=== PATIENT | male | born 1960 | race American Indian/Alaskan Native ===

== ENCOUNTER 2016-12-18 18:56 | Emergency (ER) | payer MEDICARE ==
[2016-12-18 20:52] LABS: Basophils % (Auto) 0.6 % (0.0-1.8); Eosinophils % (Auto) 2.8 % (0.0-4.3); Hematocrit 45.8 % (35.5-45.6); Hemoglobin 15.5 gm/dl (11.8-15.2); Mean Corpuscular HGB Conc 34 % (32-34); Mean Corpuscular Hemoglobin 31 pg (28-32); Mean Corpuscular Volume 92 fl (84-94); Platelet Count 256 K/mm3 (140-440); Red Blood Count 4.99 M/mm3 (3.65-5.03); Red Cell Distribution Width 14.1 % (13.2-15.2); White Blood Count 12.6 K/mm3 (4.5-11.0)
[2016-12-18 20:57] LABS: Anion Gap 18 mmol/L; BUN/Creatinine Ratio 16.36; Blood Urea Nitrogen 18 mg/dL (9-20); Calcium 9.5 mg/dL (8.4-10.2); Carbon Dioxide 25 mmol/L (22-30); Chloride 104.7 mmol/L (98-107); Glucose 252 mg/dL (75-100); Potassium 4.4 mmol/L (3.6-5.0); Sodium 143 mmol/L (137-145)
--- NOTE | 2016-12-18 22:35 | Emergency Department Report ---
HPI - General Chief Complaint: Skin Rash - HPI HPI: 56-year-old -[place] male with a known past medical history of diabetes which is on metformin 1000 mg twice a day and NovoLog sliding scale for any blood sugars are over 210. Patient reports that he has a rash that's been going on for the last 7 days. He reports that the rash is located between his gluteal fold of his back as well as under his testicles. He reports that it itches very much. She reports that he has tried [id number] ointment which has been non-therapeutic. He denies any open sores. ED Past Medical Hx - Past Medical History Previous Medical History?: Yes Hx Diabetes: Yes Hx Psychiatric Treatment: Yes (depression) - Surgical History Past Surgical History?: Yes Additional Surgical History: neck surgery 2007. left carpal tunnel surgery - Social History Smoking Status: Current Every Day Smoker Substance Use Type: None - Medications Home Medications: Home Medications Medication Instructions Recorded Confirmed Last Taken Type Acetaminophen/Codeine [Tylenol #3] 1 tab PO Q6H PRN #15 tab 04/03/15 Unknown Rx Amoxicillin 500 mg PO BID #20 tablet 04/03/15 Unknown Rx Ibuprofen [Motrin 800 MG tab] 800 mg PO Q8HR PRN #30 tablet 04/03/15 Unknown Rx Acetaminophen/Codeine [Tylenol #3] 1 tab PO Q6H PRN #20 tab 11/03/15 Unknown Rx Ibuprofen [Motrin 800 MG tab] 800 mg PO Q8HR PRN #30 tablet 11/03/15 Unknown Rx Penicillin Vk [Veetids TAB] 500 mg PO QID #40 tablet 11/03/15 Unknown Rx Fluticasone [Flonase] 1 spray NS QDAY #1 bottle 01/15/16 Unknown Rx methylPREDNISolone [Medrol] 4 mg PO QAM #1 tab.ds.pk 01/15/16 Unknown Rx ALBUTEROL Inhaler [ProAir HFA 2 puff IH QID PRN #1 inhalation 08/19/16 Unknown Rx Inhaler] Azithromycin [Zithromax Z-LANCE] 250 mg PO QDAY #6 tablet 08/19/16 Unknown Rx traMADol [Ultram 50 MG tab] 50 mg PO Q6HR PRN #10 tablet 08/19/16 Unknown Rx Nystatin Oint [Mycostatin Oint] 1 applicatio TP BID #30 tube 12/18/16 Unknown Rx ED Review of Systems ROS: Stated complaint: DIABETIC/RASH ON LEGS BUTTOCK/ABD PAIN /BACK PAIN Other details as noted in HPI Constitutional: denies: chills, fever Eyes: denies: eye pain, eye discharge, vision change ENT: denies: ear pain, throat pain Respiratory: denies: cough, shortness of breath, wheezing Cardiovascular: denies: chest pain, palpitations Endocrine: no symptoms reported Gastrointestinal: denies: abdominal pain, nausea, diarrhea Skin: rash Physical Exam - Physical Exam Vital Signs: Vital Signs 12/18/16 19:20 Temperature 98.1 F Pulse Rate 78 Respiratory 18 Rate Blood Pressure 157/102 O2 Sat by Pulse 98 Oximetry General: GENERAL: Alert and oriented x3, no apparent distress, Normal Gait, atraumatic. HEAD: Head is normocephalic and a-traumatic. EYES: Extra ocular muscles are intact. Pupils are equal, round, and reactive to light and accommodation. UROGENITAL: No scrotal mass, Scrotum non tender to palpation bilaterally, no hernia, no scars or penile discharge. NEUROLOGIC: No focal Deficit, Cranial nerves II through XII are grossly intact. No loss of sensation, No facial droop, Negative rhomberg. PSYCHIATRIC: Mood is congruent with affect, denies suicidal or homicidal ideations. SKIN: Warm and dry, dry hypopigmented circular rash with no erythematous base located under the testicles and in the gluteal folds ED Course Vital Signs 12/18/16 19:20 Temperature 98.1 F Pulse Rate 78 Respiratory 18 Rate Blood Pressure 157/102 O2 Sat by Pulse 98 Oximetry ED Medical Decision Making - Lab Data Result diagrams: 12/18/16 20:28 12/18/16 20:28 - Medical Decision Making Patient's been evaluated by this provider in fast track. Discussed with patient this appears to be a tinea possible secondary to his diabetes been uncontrolled. Discussed with patient I we'll place him on nystatin ointment for him to use it at least twice a day. Also discussed with patient that his blood pressures a little elevated and that is serum creatinine is 1.1 which is a borderline of starting to be elevated. Discussed with patient that he needs to speak with his primary care provider about placing him on an RENE inhibitor or an ARb. The patient verbalizes understanding Critical care attestation.: If time is entered above; I have spent that time in minutes in the direct care of this critically ill patient, excluding procedure time. ED Disposition Clinical Impression: Yeast infection of the skin, Diabetes 1.5, managed as type 2 Disposition: DISCHARGED TO HOME OR SELFCARE Is pt being admited?: No Does the pt Need Aspirin: No Condition: Stable Instructions: Jock Itch (ED), Diabetes Mellitus Type 2 in Adults (ED) Additional Instructions: Very important for you to use the ointment as prescribed. Discussed with her primary care doctor about possible placement of a blood pressure medicine of an RENE inhibitor or an arb. Prescriptions: Nystatin Oint [Mycostatin Oint] 1 applicatio TP BID #30 tube Referrals: FARHAD KELLER MD [Primary Care Provider] - 3-5 Days Forms: Work/School Release Form(ED)
[2016-12-18 22:37] VITALS: BP 154/91
== END 2016-12-19 01:07 | disposition home or self-care (01) ==
LOC: ED 18:56
DX: R21 Rash and other nonspecific skin eruption (principal); E11.9 Type 2 diabetes mellitus without complications; F32.9 Major depressive disorder, single episode, unspecified; F17.200 Nicotine dependence, unspecified, uncomplicated; Z79.84 Long term (current) use of oral hypoglycemic drugs
CPT/HCPCS: 36415; 80048; 85025; 99283

== ENCOUNTER 2017-05-10 08:02 | Emergency (ER) | payer MEDICARE ==
[2017-05-10 08:25] VITALS: BP 149/90
[2017-05-10] MEDS ORDERED: FUL-GLO OP ONE (10:01)
--- NOTE | 2017-05-10 11:08 | Emergency Department Report ---
Entered by JULIEN MEDINA, acting as scribe for YESICA HYATT PA. ED Eye Problem HPI - General Chief complaint: Eye Problems Stated complaint: ELEV BLOOD PRESSURE Time Seen by Provider: 05/10/17 09:44 Source: patient Mode of arrival: Ambulatory Limitations: No Limitations - History of Present Illness Initial comments: 56 year old male with past medical history of diabetes controlled with metformin and insulin presents to with bilateral eye irritation since, but left eye is worse since yesterday. 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 He states this morning when he woke up, everything was dark on his left eye because he couldnt open his left eye due to pain and describes pain as burning. Patient reports watery eyes and blurry vision but denies, fever, chills, headache, dizziness, nausea, vomiting, chest pain, numbness, or tingling. Patient denies wearing glasses. Patient has PMHx of DM and HTN and is non complaint with HTN meds. NKDA. 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 denies: headache, neck pain, nausea/vomiting, cough , rhinorrhea, fever, shortness of breath Treatments Prior to Arrival: none - Related Data Previous Rx's Medication Instructions Recorded Last Taken Type Amoxicillin 500 mg PO BID #20 tablet 04/03/15 Unknown Rx Ibuprofen [Motrin 800 MG tab] 800 mg PO Q8HR PRN #30 tablet 04/03/15 Unknown Rx Acetaminophen/Codeine [Tylenol #3] 1 tab PO Q6H PRN #20 tab 11/03/15 Unknown Rx Ibuprofen [Motrin 800 MG tab] 800 mg PO Q8HR PRN #30 tablet 11/03/15 Unknown Rx Penicillin Vk [Veetids TAB] 500 mg PO QID #40 tablet 11/03/15 Unknown Rx Fluticasone [Flonase] 1 spray NS QDAY #1 bottle 01/15/16 Unknown Rx methylPREDNISolone [Medrol] 4 mg PO QAM #1 tab.ds.pk 01/15/16 Unknown Rx ALBUTEROL Inhaler [ProAir HFA 2 puff IH QID PRN #1 inhalation 08/19/16 Unknown Rx Inhaler] Azithromycin [Zithromax Z-LANCE] 250 mg PO QDAY #6 tablet 08/19/16 Unknown Rx traMADol [Ultram 50 MG tab] 50 mg PO Q6HR PRN #10 tablet 08/19/16 Unknown Rx Nystatin Oint [Mycostatin Oint] 1 applicatio TP BID #30 tube 12/18/16 Unknown Rx Acetaminophen/Codeine [Tylenol 1 tab PO Q6H PRN #8 tab 05/10/17 Unknown Rx /Codeine # 3 tab] Ketorolac Tromethamin 0.4%(Nf) 1 drop OP BID #5 ml 05/10/17 Unknown Rx [Acular Ls 0.4% Ophth Jenna] Ofloxacin [Ocuflox 0.3%] 1 - 2 drop OP QID #5 ml 05/10/17 Unknown Rx Allergies Allergy/AdvReac Type Severity Reaction Status Date / Time No Known Allergies Allergy Verified 05/10/17 08:28 ED Review of Systems Comment: All other systems reviewed and negative Constitutional: weakness. denies: chills, fever Eyes: eye pain, other (watery eyes) ENT: denies: ear pain, throat pain Respiratory: denies: cough, shortness of breath, wheezing Cardiovascular: denies: chest pain, palpitations Gastrointestinal: denies: abdominal pain, nausea, vomiting, diarrhea Musculoskeletal: denies: back pain, joint swelling, arthralgia Skin: denies: rash, lesions Neurological: denies: headache, weakness, paresthesias ED Past Medical Hx - Past Medical History Hx Hypertension: Yes Hx Diabetes: Yes Hx Psychiatric Treatment: Yes (depression) - Surgical History Additional Surgical History: neck surgery 2007. left carpal tunnel surgery - Social History Smoking Status: Current Every Day Smoker Substance Use Type: Alcohol - Medications Home Medications: Home Medications Medication Instructions Recorded Confirmed Last Taken Type Amoxicillin 500 mg PO BID #20 tablet 04/03/15 Unknown Rx Ibuprofen [Motrin 800 MG tab] 800 mg PO Q8HR PRN #30 tablet 04/03/15 Unknown Rx Acetaminophen/Codeine [Tylenol #3] 1 tab PO Q6H PRN #20 tab 11/03/15 Unknown Rx Ibuprofen [Motrin 800 MG tab] 800 mg PO Q8HR PRN #30 tablet 11/03/15 Unknown Rx Penicillin Vk [Veetids TAB] 500 mg PO QID #40 tablet 11/03/15 Unknown Rx Fluticasone [Flonase] 1 spray NS QDAY #1 bottle 01/15/16 Unknown Rx methylPREDNISolone [Medrol] 4 mg PO QAM #1 tab.ds.pk 01/15/16 Unknown Rx ALBUTEROL Inhaler [ProAir HFA 2 puff IH QID PRN #1 inhalation 08/19/16 Unknown Rx Inhaler] Azithromycin [Zithromax Z-LANCE] 250 mg PO QDAY #6 tablet 08/19/16 Unknown Rx traMADol [Ultram 50 MG tab] 50 mg PO Q6HR PRN #10 tablet 08/19/16 Unknown Rx Nystatin Oint [Mycostatin Oint] 1 applicatio TP BID #30 tube 12/18/16 Unknown Rx Acetaminophen/Codeine [Tylenol 1 tab PO Q6H PRN #8 tab 05/10/17 Unknown Rx /Codeine # 3 tab] Ketorolac Tromethamin 0.4%(Nf) 1 drop OP BID #5 ml 05/10/17 Unknown Rx [Acular Ls 0.4% Ophth Jenna] Ofloxacin [Ocuflox 0.3%] 1 - 2 drop OP QID #5 ml 05/10/17 Unknown Rx ED Physical Exam - General Limitations: No Limitations - Other Other exam information: GENERAL: Patient is alert and oriented x 3. No apparent distress, normal gait, atraumatic. HEAD: Head is normocephalic and atraumatic. EYES: Per orbital swelling to left eye mildly tender to palpation. Mild conjunctival injection of the left eye. Vision is intact, PERRLA EARS: Symmetrical, atraumatic, non tender. NOSE: Nose symmetrical, nontender. Nares appeared normal. MOUTH:Mouth is well hydrated and without lesions. NECK: Supple. Non edematous, No lymphadenopathy or thyromegaly. LUNGS: Symmetrical with respiration. No wheezing, rales or crackles, CTAB. HEART: Regular rate and rhythm with normal S1/S2 present. No murmurs, rubs, or gallops. SKIN: Warm and dry. No lesions, ulceration or induration present NEUROLOGIC: No focal deficit. ED Course Vital Signs 05/10/17 08:19 Temperature 98.1 F Pulse Rate 86 Respiratory 17 Rate Blood Pressure 149/90 O2 Sat by Pulse 98 Oximetry ED Medical Decision Making - Medical Decision Making MDM: 56- year old male present to ED with left eye corneal abrasion ED Course: P.O.C glucose was ordered in ED. Eye exam was done- shows corneal abrasion at middle of eye. Visual Acuity- Bilat :20/70 R:20/100. Vision is intact patient demonstrated no loss of vision Patient reports feeling better and able to open the left eye better prior to d/c Discussed with patient follow-up with an eye doctor Discussed with patient to follow up with PCP as referred, and to return to the ED if his symptoms return or worsen. Patient states understanding and will follow instructions. Vital signs stable, patient is in no acute distress. Patient has no neurological deficit. Patient is alert and oriented 3 and understands all instructions given. 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 Follow-up which your primary care physician as discussed Return to ED if worsening symptoms Prescriptions: Acetaminophen/Codeine [Tylenol /Codeine # 3 tab] 1 tab PO Q6H PRN #8 tab PRN Reason: Severe Pain Ketorolac Tromethamin 0.4%(Nf) [Acular Ls 0.4% Ophth Jenna] 1 drop OP BID #5 ml Ofloxacin [Ocuflox 0.3%] 1 - 2 drop OP QID #5 ml Referrals: PRIMARY CARE, [Primary Care Provider] - 3-5 Days DELON HYDE MD [Staff Physician] - 3-5 Days Forms: Accompanied Note, Work/School Release Form(ED) Time of Disposition: 11:01 This documentation as recorded by the ADAM lee PEARL,accurately reflects the service I personally performed and the decisions made by ,YESICA HYATT PA.
== END 2017-05-10 11:08 | disposition home or self-care (01) ==
LOC: ED 08:02
DX: S05.02XA Injury of conjunctiva and corneal abrasion without foreign body, left eye, initial encounter (principal); E11.9 Type 2 diabetes mellitus without complications; I10 Essential (primary) hypertension; F32.9 Major depressive disorder, single episode, unspecified; F17.200 Nicotine dependence, unspecified, uncomplicated; Z79.4 Long term (current) use of insulin; X58.XXXA Exposure to other specified factors, initial encounter; Y93.89 Activity, other specified; Y99.9 Unspecified external cause status; Y92.89 Other specified places as the place of occurrence of the external cause
CPT/HCPCS: 82962; 99283

== ENCOUNTER 2017-08-28 05:26 | Emergency (ER) | payer MEDICARE ==
[2017-08-28 05:36] VITALS: BP 161/97
--- NOTE | 2017-08-28 06:34 | XRay Report ---
FINAL REPORT EXAM: XR CHEST ROUTINE 2V HISTORY: cough TECHNIQUE: PA and lateral views of the chest were submitted. FINDINGS: Heart size and mediastinum appear normal. The lungs are not congested. There are increased markings in the right lung base compatible with mild atelectatic changes/developing infiltrate. Pleural fluid is not seen. The skeletal structures do not show any acute changes. IMPRESSION: Mild atelectatic changes versus developing infiltrate in the right lower lobe.
[2017-08-28 07:01] LABS: Bilirubin,Urine NEG (Negative); Blood,Urine NEG (Negative); Ketones,Urine NEG (Negative); Leukocyte Esterase,Urine NEG (Negative); Nitrite,Urine NEG (Negative); Urobilinogen,Urine < 2.0 mg/dL (<2.0)
[2017-08-28 07:02] LABS: Protein,Urine >500 mg/dL (Negative)
== END 2017-08-28 10:22 | disposition left against medical advice (07) ==
LOC: ED 05:26
DX: R50.9 Fever, unspecified (principal); Z53.21 Procedure and treatment not carried out due to patient leaving prior to being seen by health care provider
CPT/HCPCS: 71020; 81001; 93005; 93010

== ENCOUNTER 2017-11-04 01:01 | Emergency (ER) | payer MEDICARE | END 2017-11-04 01:05 | disposition left against medical advice (07) | LOC: ED 01:01 | DX: Z04.1 Encounter for examination and observation following transport accident (principal); Z53.21 Procedure and treatment not carried out due to patient leaving prior to being seen by health care provider ==

== ENCOUNTER 2018-06-18 23:57 | Emergency (ER) | payer OTHER, MEDICARE ==
[2018-06-19 00:58] VITALS: BP 154/93
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
[2018-06-19] MEDS ORDERED: TORADOL IM ONE (02:39)
== END 2018-06-19 02:50 | disposition home or self-care (01) ==
LOC: ED 23:57
DX: S16.1XXA Strain of muscle, fascia and tendon at neck level, initial encounter (principal); S39.012A Strain of muscle, fascia and tendon of lower back, initial encounter; I10 Essential (primary) hypertension; E11.9 Type 2 diabetes mellitus without complications; F32.9 Major depressive disorder, single episode, unspecified; F17.200 Nicotine dependence, unspecified, uncomplicated; V43.52XA Car driver injured in collision with other type car in traffic accident, initial encounter; W22.10XA Striking against or struck by unspecified automobile airbag, initial encounter; Y93.89 Activity, other specified; Y92.89 Other specified places as the place of occurrence of the external cause; Y99.8 Other external cause status
CPT/HCPCS: 72040; 96372; 99283; J1885

== ENCOUNTER 2019-01-19 13:59 | Emergency (ER) | payer MEDICARE ==
[2019-01-19 14:25] VITALS: BP 126/86
--- NOTE | 2019-01-19 14:28 | Emergency Department Report ---
ED ENT HPI - General Chief complaint: Dental/Oral Stated complaint: INFECTION ON (L) SIDE Time Seen by Provider: 01/19/19 14:23 Source: patient Mode of arrival: Ambulatory Limitations: No Limitations - History of Present Illness Initial comments: Pt is a 58 yo male who presents with left lower dental pain that started yesterday. Pt states he last saw a dentist two years ago. Pt states he has subjective fever. He denies any N/V/D. PMHx of DM, pt takes metformin (+) smoker, occasional ETOH use. - Related Data Previous Rx's Medication Instructions Recorded Last Taken Type ALBUTEROL Inhaler (OR & NICU) 2 puff IH QID PRN #1 inhalation 08/19/16 Unknown Rx [ProAir HFA Inhaler] Nystatin Oint [Mycostatin Oint] 1 applicatio TP BID #30 tube 12/18/16 Unknown Rx Acetaminophen/Codeine [Tylenol 1 tab PO Q6H PRN #8 tab 05/10/17 Unknown Rx /Codeine # 3 tab] Ketorolac Tromethamin 0.4%(Nf) 1 drop OP BID #5 ml 05/10/17 Unknown Rx [Acular Ls 0.4% Ophth Jenna] Menthol/Camphor [[place] 8 gm TP TID PRN #1 tube 06/19/18 Unknown Rx Ointment] Acetaminophen/Codeine [Tylenol 1 tab PO Q6H PRN #10 tab 01/19/19 Unknown Rx /Codeine # 3 tab] Clindamycin [Clindamycin CAP] 450 mg PO TID 7 Days #63 capsule 01/19/19 Unknown Rx Ibuprofen [Motrin 800 MG tab] 800 mg PO Q8HR PRN #20 tablet 01/19/19 Unknown Rx Allergies Allergy/AdvReac Type Severity Reaction Status Date / Time No Known Allergies Allergy Verified 01/19/19 14:01 ED Dental HPI - General Chief complaint: Dental/Oral Stated complaint: INFECTION ON (L) SIDE Time Seen by Provider: 01/19/19 14:23 Source: patient Mode of arrival: Ambulatory Limitations: No Limitations - Related Data Previous Rx's Medication Instructions Recorded Last Taken Type ALBUTEROL Inhaler (OR & NICU) 2 puff IH QID PRN #1 inhalation 08/19/16 Unknown Rx [ProAir HFA Inhaler] Nystatin Oint [Mycostatin Oint] 1 applicatio TP BID #30 tube 12/18/16 Unknown Rx Acetaminophen/Codeine [Tylenol 1 tab PO Q6H PRN #8 tab 05/10/17 Unknown Rx /Codeine # 3 tab] Ketorolac Tromethamin 0.4%(Nf) 1 drop OP BID #5 ml 05/10/17 Unknown Rx [Acular Ls 0.4% Ophth Jenna] Menthol/Camphor [[place] 8 gm TP TID PRN #1 tube 06/19/18 Unknown Rx Ointment] Acetaminophen/Codeine [Tylenol 1 tab PO Q6H PRN #10 tab 01/19/19 Unknown Rx /Codeine # 3 tab] Clindamycin [Clindamycin CAP] 450 mg PO TID 7 Days #63 capsule 01/19/19 Unknown Rx Ibuprofen [Motrin 800 MG tab] 800 mg PO Q8HR PRN #20 tablet 01/19/19 Unknown Rx Allergies Allergy/AdvReac Type Severity Reaction Status Date / Time No Known Allergies Allergy Verified 01/19/19 14:01 ED Review of Systems ROS: Stated complaint: INFECTION ON (L) SIDE Other details as noted in HPI Comment: All other systems reviewed and negative ED Past Medical Hx - Past Medical History Hx Hypertension: Yes Hx Diabetes: Yes Hx Psychiatric Treatment: Yes (depression) - Surgical History Additional Surgical History: neck surgery 2007. left carpal tunnel surgery - Social History Smoking Status: Current Every Day Smoker Substance Use Type: None - Medications Home Medications: Home Medications Medication Instructions Recorded Confirmed Last Taken Type ALBUTEROL Inhaler (OR & NICU) 2 puff IH QID PRN #1 inhalation 08/19/16 Unknown Rx [ProAir HFA Inhaler] Nystatin Oint [Mycostatin Oint] 1 applicatio TP BID #30 tube 12/18/16 Unknown Rx Acetaminophen/Codeine [Tylenol 1 tab PO Q6H PRN #8 tab 05/10/17 Unknown Rx /Codeine # 3 tab] Ketorolac Tromethamin 0.4%(Nf) 1 drop OP BID #5 ml 05/10/17 Unknown Rx [Acular Ls 0.4% Ophth Jenna] Menthol/Camphor [[place] 8 gm TP TID PRN #1 tube 06/19/18 Unknown Rx Ointment] Acetaminophen/Codeine [Tylenol 1 tab PO Q6H PRN #10 tab 01/19/19 Unknown Rx /Codeine # 3 tab] Clindamycin [Clindamycin CAP] 450 mg PO TID 7 Days #63 capsule 01/19/19 Unknown Rx Ibuprofen [Motrin 800 MG tab] 800 mg PO Q8HR PRN #20 tablet 01/19/19 Unknown Rx ED Physical Exam - General Limitations: No Limitations General appearance: alert, in no apparent distress - Head Head exam: Present: atraumatic, normocephalic - Eye Eye exam: Present: normal appearance - ENT ENT exam: Present: other (poor dentition, pt has partially cracked tooth on the left lower side with decay, small amount of swelling present to the left lower cheek, no obvious fluctuance) - Respiratory Respiratory exam: Present: normal lung sounds bilaterally. Absent: respiratory distress, wheezes, rales, rhonchi, stridor, chest wall tenderness, accessory muscle use, decreased breath sounds, prolonged expiratory - Cardiovascular Cardiovascular Exam: Present: regular rate, normal rhythm, normal heart sounds. Absent: systolic murmur, diastolic murmur, rubs, gallop - Neurological Exam Neurological exam: Present: alert, oriented X3 - Psychiatric Psychiatric exam: Present: normal affect, normal mood - Skin Skin exam: Present: warm, dry, intact ED Course Vital Signs 01/19/19 14:23 Temperature 98.3 F Pulse Rate 106 H Respiratory 18 Rate Blood Pressure 126/86 O2 Sat by Pulse 96 Oximetry ED Medical Decision Making - Medical Decision Making Pt is a 58 yo male who presents with left lower dental pain that started yesterday. Pt states he last saw a dentist two years ago. Pt states he has subjective fever. He denies any N/V/D. PMHx of DM, pt takes metformin (+) smoker, occasional ETOH use. Pt has very poor dentition with tooth decay. Pt given abx and pain medication. Advised to take medication as prescribed. Discussed with pt to see a dentist [facility]. Follow up with PCP in the next 2-3 days. Pt given community resources and dental clinic list. Return to the ED for any new or worsening symptoms. Critical care attestation.: If time is entered above; I have spent that time in minutes in the direct care of this critically ill patient, excluding procedure time. ED Disposition Clinical Impression: Dental caries, Dental infection Disposition: DC- TO HOME OR SELFCARE Is pt being admited?: No Does the pt Need Aspirin: No Condition: Stable Instructions: Dental Caries (ED) Additional Instructions: Please take all medication as prescribed. Please see a dentist [facility]. Please follow up with your primary care doctor in the next 2-3 days. Return to the emergency room for any new or worsening symptoms. Prescriptions: Clindamycin [Clindamycin CAP] 450 mg PO TID 7 Days #63 capsule Ibuprofen [Motrin 800 MG tab] 800 mg PO Q8HR PRN #20 tablet PRN Reason: Pain, Moderate (4-6) Acetaminophen/Codeine [Tylenol /Codeine # 3 tab] 1 tab PO Q6H PRN #10 tab PRN Reason: Pain , Severe (7-10) Referrals: FARHAD KELLER MD [Primary Care Provider] - 2-3 Days your, dentist [Other] - [facility] Time of Disposition: 14:56 Print Language: LITHUANIAN
--- NOTE | 2019-01-19 14:28 | Emergency Department Report ---
Chief Complaint: Dental/Oral Stated Complaint: INFECTION ON (L) SIDE Time Seen by Provider: 01/19/19 14:23 - HPI History of Present Illness: pt presents with left lower dental pain that started yesterday last saw a dentist two years ago (+) subjective fever no V/D PMHx of DM pt takes metformin (+) smoker occ drinker MSE screening note: Focused history and physical exam performed. ED Disposition for MSE Condition: Stable
== END 2019-01-19 15:25 | disposition home or self-care (01) ==
LOC: ED 13:59
DX: K02.9 Dental caries, unspecified (principal); F17.200 Nicotine dependence, unspecified, uncomplicated; E11.9 Type 2 diabetes mellitus without complications; I10 Essential (primary) hypertension
CPT/HCPCS: 99282